=== PATIENT | male | born 2000 | race Caucasian/White ===

== ENCOUNTER 2018-01-18 20:25 | Emergency (ER) | payer OTHER ==
[~2018-01-18] VITALS: Ht 177.8 cm; Wt 75.4 kg
[2018-01-18 20:29] VITALS: TEMP 36.7; Ht 177.8 cm; Wt 75.4 kg
[2018-01-18] MEDS ORDERED: DIAZEPAM INJ 5 MG/ML 2 ML CARP IM STA (21:19)
[2018-01-18] MEDS ORDERED: KETOROLAC TROMETHAMINE 60 MG/2 ML VIAL IM STA (21:19)
--- NOTE | 2018-01-18 22:02 | DIAGNOSTIC IMAGING REPORT ---
C-SPINE ROUTINE 4 OR 5 VIEWS HISTORY: Pain pain in right upper back/shoulder/base of neck COMPARISON: None. FINDINGS: The cervical spine is visualized from C1 through the superior endplate of T1. There is no fracture. No subluxation. Disc spaces are preserved. Prevertebral soft tissues and the atlantodens interval are intact. IMPRESSION: No fracture or subluxation within the cervical spine. The above report was generated using voice recognition software. It may contain grammatical, syntax or spelling errors. Electronically signed by: Joesph Dominique M.D. 01/18/2018 10:00 PM Dictated Date/Time: 01/18/2018 10:00 PM
--- NOTE | 2018-01-18 22:02 | DIAGNOSTIC IMAGING REPORT ---
CHEST 2 VIEWS ROUTINE CLINICAL HISTORY: pain in right upper shoulder/back pain COMPARISON STUDY: No previous studies for comparison. FINDINGS: The bones soft tissues and hemidiaphragms are normal. The cardiomediastinal silhouette is normal. The lungs are clear. The pulmonary vasculature is normal. IMPRESSION: Negative chest. The above report was generated using voice recognition software. It may contain grammatical, syntax or spelling errors. Electronically signed by: Joesph Dominique M.D. 01/18/2018 10:01 PM Dictated Date/Time: 01/18/2018 10:01 PM
[2018-01-18] MEDS ORDERED: DIAZ10TA3 PO (22:29)
--- NOTE | 2018-01-18 22:33 | EMERGENCY ROOM VISIT NOTE ---
ED Visit Note First contact with patient: 21:07 CHIEF COMPLAINT: Neck pain HISTORY OF PRESENT ILLNESS: This 17-year-old male patient presents to the emergency department by private vehicle complaining of pain in the right side of the neck and shoulder blade area that started approximately 2 hours ago. Patient states that he was playing soccer, turned his head to the right quickly and got a sharp pain that has been severe and has not been improving. Patient denies any falls or injury to the neck or back. The patient rates the pain as throbbing and sharp, 8/10. The patient has taken no medications for the pain. The patient does not have a history of previous neck or back problems. He denies any midline spine pain. The patient denies any pain of the arms and shoulders. The patient denies numbness/tingling or weakness of the extremities. The patient denies chest pain or shortness of breath. There was no head injury and no loss of consciousness. The patient denies headache, blurred vision, abdominal pain, nausea, or vomiting. The patient denies change in personality. REVIEW OF SYSTEMS: A complete 10 point review of systems was reviewed with the patient with pertinent positives and negatives as per history of present illness. All else were negative. ALLERGIES: No known allergy MEDICATIONS: No medication PMH: No significant past medical or surgical history. He is up-to-date on immunizations. SOCIAL HISTORY: He lives at home. He is a [employer] student. He denies tobacco use, alcohol or recreational drug use. PHYSICAL EXAM: VITALS: Vitals are noted on the nurse's note and reviewed by myself. Vital signs stable. GENERAL: Pleasant and cooperative, in no acute distress, non- diaphoretic, well-developed well-nourished. SKIN: Capillary reflex less than 2 seconds. HEENT: Normocephalic. PERRLA. EOMI. Nares patent. Mucous membranes moist. Neck is supple without nuchal rigidity. Cervical spine is not tender to palpation. The patient has no tenderness of the paraspinal muscles of the cervical spine. There is tenderness at the base of the right lateral neck extending into the musculature medial to the scapula with obvious muscle spasm noted, palpation reproduces patient's complaint. There is no lymphadenopathy. MUSCULOSKELETAL: The patient has full range of motion of the bilateral arms. Strength 5/5 of the bilateral upper extremities. The patient has increased pain with turning of the neck side to side. NEURO: Patient was alert and oriented to person place and time. Normal sensation to light and sharp touch. No focal neurologic deficits. EMERGENCY DEPARTMENT COURSE: I examined the patient. Differential diagnosis includes muscular sprain/strain, spasm, torticollis, contusion, fracture, among others. Plain film x-rays of the cervical spine and chest were performed, these were reviewed and showed no acute abnormalities. The patient was given an ice pack, IM Toradol and Valium for his muscle spasm, reporting good improvement in his pain overall. The patient was updated on all results and plan for discharge. Patient was given education regarding ongoing management of his symptoms, follow-up plan, and return precautions should his symptoms worsen, he verbalized understanding. Patient was discharged home with friends in stable condition and ambulatory. Current/Historical Medications Scheduled Diazepam (Valium), 10 MG PO Q8H Vital Signs Date Time Temp Pulse Resp B/P (MAP) Pulse Ox O2 Delivery O2 Flow Rate FiO2 01/18/18 22:43 81 18 148/89 97 Room Air 01/18/18 22:00 84 18 152/97 98 Room Air 01/18/18 20:29 36.7 78 18 156/90 99 Room Air Medications Administered Medications (Trade) Dose Ordered Sig/Kaelyn Route Start Time Stop Time Status Last Admin Dose Admin Ketorolac Tromethamine (Toradol Inj) 60 mg NOW STAT IM 01/18/18 21:19 01/18/18 21:22 DC 01/18/18 21:30 60 MG Diazepam (Valium Inj) 10 mg NOW STAT IM 01/18/18 21:19 01/18/18 21:22 DC 01/18/18 21:30 10 MG Departure Information Impression Primary Impression: Muscle spasm of back Additional Impression: Muscle strain of right upper back Dispostion Home / Self-Care Condition GOOD Prescriptions Diazepam (VALIUM) 10 Mg Tab 10 MG PO Q8H for 3 Days, #[address] WITH MEDICATION Prov: Nela Solorio CRNP 01/18/18 Referrals [facility] (PCP) Patient Instructions ED Back Care Tips, ED Spasm Back No Trauma, ED Sprain Strain Neck, [facility] Additional Instructions You were evaluated and treated in the emergency department tonight for your right upper back and neck pain. X-rays of your neck and chest are normal. Take it easy for the next few days, no strenuous activity, heavy lifting, or bending/twisting motions, to allow your back to rest. Alternate heat and ice for comfort. After heat, you may do gentle stretching and massage to the area. You may take the following [id number] medications as needed for pain: - Regular strength (325mg/tab) Tylenol (acetaminophen) 2 tabs every 4-6 hours as needed. Do not exceed 10 tablets in a 24 hour period. Avoid taking more than 3000 mg of Tylenol per day. This includes any other sources of acetaminophen you may take on a regular basis. - Regular strength (200 mg/tab) Advil (ibuprofen) 3 tabs every 6-8 6 hours as needed. Do not exceed a dose of 2400 mg per day. You have been prescribed Valium, which is a muscle relaxer. Take as prescribed , as needed for muscle tightness and spasms. This may make you drowsy. Do not drive or drink alcohol while taking. Follow up with your PCP in the next few days for further management. You may benefit from physical therapy. Please return to the ER if any problems with bowel or bladder function, numbness in your groin, high fevers, severe worsening pain, or if loss of feeling/movement of arms or legs, or any other concern. School Instructions Return To School: 2 days Problem Qualifiers Additional Impression: Muscle strain of right upper back Encounter type: initial encounter Qualified Codes: S29.012A - Strain of muscle and tendon of back wall of thorax, initial encounter
[2018-01-18 22:43] VITALS: BP 148/89; PULSE 81; O2SAT 97
== END 2018-01-18 22:46 | disposition home or self-care (01) ==
LOC: C.EDB 20:27 → C.EDD 22:46
DX: S29.012A Strain of muscle and tendon of back wall of thorax, initial encounter (principal); M62.830 Muscle spasm of back; X58.XXXA Exposure to other specified factors, initial encounter; Y93.66 Activity, soccer